=== PATIENT | female | born 1995 | race American Indian/Alaskan Native ===

== ENCOUNTER 2016-12-14 15:45 | Emergency (ER) | payer BC ==
[2016-12-14 16:02] VITALS: RESP 16
[2016-12-14 16:23] LABS: SQUAMOUS EPITHIAL 4 /hpf (0-5); URINE BACTERIA RARE (<OCC); URINE BILIRUBIN NEGATIVE (NEGATIVE); URINE BLOOD 1+ (NEGATIVE); URINE CLARITY Clear (Clear); URINE COLOR Straw (YELLOW); URINE GLUCOSE (UA) NORMAL (Normal); URINE LEUKOCYTE ESTERASE NEG Leu/uL (Negative); URINE NITRATE NEGATIVE (NEGATIVE); URINE PROTEIN NEGATIVE (NEGATIVE); URINE UROBILINOGEN NORMAL mg/dL (0.2-1.0)
[2016-12-14 16:28] LABS: HCG,QUALITATIVE URINE NEGATIVE (NEGATIVE)
[2016-12-14] MEDS ORDERED: Sodium Chloride 0.9% 1,000 ML IV STA (16:49)
[2016-12-14] MEDS ORDERED: Sodium Chloride 0.9% 1,000 ML ONE (17:00)
[2016-12-14 17:18] LABS: BASO % 0.4 % (0.0-2.0); EOS # 0.1 K/uL (0.0-0.7); EOS % 1.4 % (0.0-4.0); HEMOGLOBIN 12.2 g/dL (11.0-16.0); LYMPH # 1.5 K/uL (1.0-4.3); LYMPH % 26.1 % (20.0-40.0); MEAN CORPUSCULAR HEMOGLOBIN 28.5 pg (27.0-31.0); MEAN CORPUSCULAR HGB CONC 33.1 g/dL (33.0-37.0); MEAN PLATELET VOLUME 6.9 fL (7.2-11.7); MONO # 0.4 K/uL (0.0-0.8); MONO % 7.6 % (0.0-10.0); NEUT # 3.6 K/uL (1.8-7.0); NEUT % 64.5 % (50.0-75.0); RBC 4.28 Mil/uL (3.80-5.20); RED CELL DISTRIBUTION WIDTH 14.6 % (11.5-14.5); WHITE BLOOD COUNT 5.6 K/uL (4.8-10.8)
[2016-12-14 17:26] LABS: ALBUMIN 3.7 g/dL (3.5-5.0)
[2016-12-14 17:29] LABS: ALB/GLOB RATIO 1.2 (1.0-2.1); AST/SGOT 22 U/L (14-36); BLOOD UREA NITROGEN 12 mg/dL (7-17); GFR AFRICAN-AMERICAN > 60; GFR NON-AFRICAN AMERICAN > 60
[2016-12-14 17:30] LABS: ALT/SGPT 27 U/L (9-52); CALCIUM 8.3 mg/dl (8.6-10.4); LIPASE 36 U/L (23-300)
--- NOTE | 2016-12-14 18:23 | C.PDOC ---
History Of Present Illness <Tracey Maloney - Last Filed: 12/14/16 19:07> <Charles Mireles - Last Filed: 12/14/16 23:27> Ghazal Hilliard, a 21 year old female, presents to the ED complaining of upper abdominal pain and vomiting x2 days. The patient states that she was in [place] when her symptoms started. Denies diarrhea, fever. (Tracey Maloney) History Per: Patient History/Exam Limitations: no limitations Onset/Duration Of Symptoms: Days Current Symptoms Are (Timing): Still Present Associated Symptoms: Vomiting. denies: Fever, Diarrhea Abnormal Vaginal Bleeding: No <Tracey Maloney - Last Filed: 12/14/16 19:07> <Charles Mireles - Last Filed: 12/14/16 23:27> Time Seen by Provider: 12/14/16 16:34 Chief Complaint (Nursing): Abdominal Pain Past Medical History Reviewed: Historical Data, Nursing Documentation, Vital Signs - Medical History PMH: Anxiety, Asthma, Depression, Pneumonia Family History: States: Unknown Family Hx - Social History Hx Tobacco Use: No Hx Alcohol Use: Yes Hx Substance Use: No - Immunization History Hx Influenza Vaccination: Yes <AmaraTracey - Last Filed: 12/14/16 19:07> Review Of Systems Except As Marked, All Systems Reviewed And Found Negative. Constitutional: Negative for: Fever Gastrointestinal: Positive for: Vomiting, Abdominal Pain (Upper abdominal pain) . Negative for: Diarrhea <Tracey Maloney - Last Filed: 12/14/16 19:07> Physical Exam - Physical Exam Appears: Well, No Acute Distress Skin: Normal Color, Warm, Dry Head: Atraumatic, Normacephalic, No Tenderness Eye(s): bilateral: Normal Inspection, PERRL, EOMI Ear(s): Bilateral: Normal Nose: Normal Oral Mucosa: Moist Tongue: Normal Appearing Lips: Normal Appearing Teeth: Normal Dentition Gingiva: Normal Appearing Throat: Normal Neck: Normal, Normal ROM, Supple Chest: No Deformity, No Tenderness Cardiovascular: Rhythm Regular Respiratory: Normal Breath Sounds, No Wheezing Gastrointestinal/Abdominal: Bowel Sounds, Soft, Tenderness (Tenderness to epigastric area and right upper quadrant), No Guarding, No Rebound Back: Normal Inspection, No CVA Tenderness Extremity: Normal ROM, No Tenderness, No Pedal Edema, No Deformity, No Swelling Neurological/Psych: Oriented x3, Normal Speech, Normal Cognition <Tracey Maloney - Last Filed: 12/14/16 19:07> ED Course And Treatment - Laboratory Results Result Diagrams: 12/14/16 17:15 12/14/16 17:15 O2 Sat by Pulse Oximetry: 98 (RA) Pulse Ox Interpretation: Normal <Tracey Maloney - Last Filed: 12/14/16 19:07> - Laboratory Results Result Diagrams: 12/14/16 17:15 12/14/16 17:15 <Charles Mireles - Last Filed: 12/14/16 23:27> Medical Decision Making <Tracey Maloney - Last Filed: 12/14/16 19:07> <Charles Mireles - Last Filed: 12/14/16 23:27> Medical Decision Makin Initial Impression: 21 year old female presenting with upper abdominal pain and vomiting Initial Plan: * Comp Metabolic Panel * Lipase * CBC * Pepcid 20mg IVP * NS 1000mls IV 1000mls/hr * Zofran 4mg IVP * HCG-qualitative * Urinalysis * USAbdomen Limited * Reevaluation (Tracey Maloney) Disposition - Disposition Disposition Time: 19:07 <Tracey Maloney - Last Filed: 12/14/16 19:07> Counseled Patient/Family Regarding: Diagnosis - Disposition Disposition Time: 23:26 - POA Present On Arrival: None <Charles Mireles - Last Filed: 12/14/16 23:27> - Disposition Referrals: [facility] [Outside] Condition: STABLE Prescriptions: Dicyclomine [Bentyl] 10 mg PO QID #14 cap Famotidine [Pepcid] 20 mg PO BID #20 tab Forms: [employer] ([place]) - Clinical Impression Clinical Impression: Abdominal pain, Gastritis - Scribe Statement The provider has reviewed the documentation as recorded by the Scribe <Tracey Maloney - Last Filed: 12/14/16 19:07> <Charles Mireles - Last Filed: 12/14/16 23:27> - Scribe Statement Jessenia Dumont All medical record entries made by the Scribe were at my direction and personally dictated by me. I have reviewed the chart and agree that the record accurately reflects my personal performance of the history, physical exam, medical decision making, and the department course for this patient. I have also personally directed, reviewed, and agree with the discharge instructions and disposition. (Tracey Maloney) Physician Patient Turnover Patient Signed Over To: Charles Mireles Handoff Comments: RUQ US pending <Tracey Maloney - Last Filed: 12/14/16 19:07>
[2016-12-14 23:40] VITALS: BP 111/72; PULSE 73; TEMP 98.4; O2SAT 99
--- NOTE | 2016-12-15 11:56 | US ---
Abdominal ultrasound History: Abdominal pain. Comparison: None available. Technique: Real-time sonography was performed through the abdomen. Findings: Liver: 12.1 centimeters length. Normal echogenicity. Gallbladder: No calculi or sludge. Normal wall thickness of 2.2 millimeters. Negative sonographic Warren's sign. Common bile duct measures 3.9 millimeters, within normal limits. Limited visualization of the pancreas. Visualized aorta and IVC are preserved. Right kidney: 10.6 x 4.4 centimeters. No calculi or hydronephrosis. Impression: Unremarkable sonographic evaluation of the abdomen. These findings were preliminarily reported at 8:27 p.m. on 12/14/[address] Kecia Lafleur from [employer] [facility].
== END 2016-12-14 23:39 | disposition home or self-care (01) ==
LOC: C.ER 15:45
DX: K29.70 Gastritis, unspecified, without bleeding (principal); R10.9 Unspecified abdominal pain
CPT/HCPCS: 76705; 80053; 81001; 83690; 84703; 85025; 96374; 96375; 99285; J2405; J7040